=== PATIENT | female | born 1960 | race African-American/Black ===

== ENCOUNTER 2024-09-15 19:17 | Emergency (ER) | payer OTHER ==
[~2024-09-15] VITALS: Ht 160 cm; Wt 78.0 kg
[2024-09-15 19:19] VITALS: O2SAT 99
[2024-09-15 20:12] LABS: BASOPHILS % 1.6 % (0.0-2.0); EOSINOPHILS % 2.3 % (0.0-5.0); HEMOGLOBIN. 13.6 g/dL (12.0-16.0); LYMPHOCYTES % 57.3 % (20.0-50.0); MEAN CORPUSCULAR HEMOGLOBIN 30.2 pg (28.0-32.0); MEAN CORPUSCULAR VOLUME 88.9 fL (81.0-99.0); MONOCYTES % 8.3 % (2.0-8.0); NEUTROPHILS % 30.5 % (40.0-76.0); PLATELET 280 x1000/uL (130-400); RED CELL DISTRIBUTION WIDTH 12.8 % (11.6-14.6); WHITE BLOOD COUNT 8.8 x1000/uL (4.5-11.0)
[2024-09-15 20:17] LABS: CHLORIDE 107 mEq/L (98-107); POTASSIUM 3.8 mEq/L (3.5-5.1); SODIUM 139 mEq/L (136-145)
[2024-09-15 20:18] LABS: CALCIUM 9.5 mg/dL (8.7-10.4); CARBON DIOXIDE 26 mEq/L (21-32)
[2024-09-15 20:23] LABS: CREATININE 0.9 mg/dL (0.6-1.0); GLUCOSE 98 mg/dL (70-105); UREA NITROGEN BLOOD 14 mg/dL (9-23)
[2024-09-15 20:24] LABS: D-DIMER 0.26 mg/L FEU (<0.50); INR 0.9; PARTIAL THROMBOPLASTIN TIME 30.3 sec (23.4-31.0); PROTHROMBIN TIME 9.9 sec (9.6-11.0)
[2024-09-15 20:25] LABS: ALANINE AMINOTRANSFERASE 16 IU/L (10-49); ALBUMIN 4.3 g/dL (3.2-4.8); ASPARTATE AMINOTRANSFERASE 17 IU/L (<34); BILIRUBIN TOTAL 0.3 mg/dL (0.1-1.0); PROTEIN TOTAL 7.2 g/dL (6.0-8.3); TROPONIN I HIGH SENSITIVITY 5 ng/L (3.0-34)
[2024-09-15 20:26] LABS: BILIRUBIN DIRECT < 0.1 mg/dL (<=3.0)
[2024-09-15 21:12] LABS: TROPONIN I HIGH SENSITIVITY 6 ng/L (3.0-34)
[2024-09-15] MEDS: NITROGLYCERIN 0.4MG TABLET SL SL ONE (23:13)
[2024-09-15] MEDS: ONDANSETRON HCL 4MG/2ML INJ IV STA (23:14)
[2024-09-15] MEDS: MORPHINE SULFATE 4 MG/ML INJ (FOR IV/IM USE) IV STA (23:15)
[2024-09-15 23:32] VITALS: BP 138/69; PULSE 50; RESP 18; TEMP 36.66960; O2SAT 98
== END 2024-09-15 23:52 | disposition short-term general hospital (02) ==
LOC: ER 19:17
DX: R07.89 Other chest pain (principal); I10 Essential (primary) hypertension
CPT/HCPCS: 80076; 80048; 83880; 85025; 85379; 85610; 85730; 84484; 36415; 71045; 93005; 96374; 96375; 99285; J2405; J2270; Z7610 ×2